=== PATIENT | female | born 1975 | race Caucasian/White ===

== ENCOUNTER 2023-03-13 16:00 | Outpatient (RCR) | payer MEDICAID, SELFPAY ==
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
--- NOTE | 2023-03-28 13:26 | HP.PT.NRP ---
Patient Information Patient Information: ZENOBIA BARRIOS was seen in my office for initial evaluation on 03/01/23. The following Plan of Care was established for this patient: POC Established Initial Frequency: 2-3x /Week Initial Duration: 4-6 Months Anticipated Interventions Patient/Client Instruction: Educate patient on: Condition, Plan of Care and Risk Factors For the Purpose of:: To improve self management Therapeutic Exercise to Include: Strength training, Body mechanics, Postural training, Flexibilty training, Gait and locomotor training, Neuromotor development, In an aquatic setting, Dynamic Lumbar Stabilization and Scapular Strength/Stabilization For the Purpose of:: To decrease pain, To increase ROM, To improve muscle performance and motor function, To increase tolerance to activity/condition/position, To improve ability of physical actions for home/community/work/leisure and To improve gait and locomotor functions Last Seen Last Seen: This patient was last seen in our office . Pertinent comments regarding their Physical therapy will appear below: PATIENT NOT TOLERATING/RESPONDING TO LAND PT THEREFORE TRIAL OF AQUATIC THERAPY SUGGESTED. PATIENT INITALLY AGREED TO AQUATIC THERAPY BUT THEN DECIDED AGAINST IT. SHE APPARENTLY DID NOT WANT TO CONTINUE PT BASED ON LIMITED INSURANCE AND NOT HAVING ENOUGH TIME TO DO VISITS NEEDED FOR MRI. SHE IS APPROPRIATE TO RETURN TO MD FOR FURTHER FOLLOW-UP NEEDED AT THIS POINT. At this point I will be discontinuing this patient from physical therapy. I would be happy to see this patient again in the future if found appropriate by the physician. Thank you! Alexsandra Huerta, PT, Cert MDT Balance/Gait/Functional tests Balance/Special Test Scores Oswestry Low Back Score: 21 Oswestry Neck Score: 22
== END 2023-03-13 19:00 | disposition home or self-care (01) ==
LOC: PT 16:00
PROVIDERS: PCP Family Medicine; Referring Provider Anesthesiology Pain Medicine; Visit Provider Anesthesiology Pain Medicine
DX: M54.2 Cervicalgia
CPT/HCPCS: 97035; 97110; 97162